=== PATIENT | female | born 1995 | race Caucasian/White ===

== ENCOUNTER 2016-09-29 13:41 | Emergency (ER) | payer BC, MEDICAID ==
[~2016-09-29] VITALS: Ht 165.1 cm; Wt 59.0 kg
[~2016-09-29 13:41] MED LIST: PROT40TA PO; ZOFR4TAB3 SL
[2016-09-29 13:47] VITALS: BP 114/60; PULSE 124; RESP 24; TEMP 98.2; O2SAT 98
--- NOTE | 2016-09-29 14:05 | PD ---
HPI Chief Complaint: Laceration/Skin Injury Time Seen by Provider: 14:05 Travel History International Travel<30 days: No Contact w/Intl Traveler<30days: No Traveled to known affect area: No History of Present Illness HPI 20-year-old female presents to the emergency department for evaluation of lacerations. Patient states that she was in her bedroom and was going to smoke a cigarette so she tried to open one of her windows. States that it is an old window that had been painted shut and she put her hands up onto the frame and pushed using some of her body weight. States that this caused the glass to break and her right wrist was lacerated by a large piece of glass. States that she also cut her left elbow. She complains of pain at the site of the laceration but denies any numbness or tingling, weakness, decreased range of motion, decreased sensation. Unsure of last tetanus vaccination. Denies but is unsure of her last menstrual cycle. States she took a test yesterday that was negative. No other complaints. PFSH Past Medical History Autoimmune Disease: No Cardiovascular Problems: No Diminished Hearing: No Genitourinary: No Hiatal Hernia: No Musculoskeletal: Yes (BROKEN RT ELBOW WHEN SHE WAS 7 ) Neurologic: No Psychiatric: No (DENIES) Respiratory: No Immunizations Current: Yes Ulcer: No Past Surgical History Pacemaker: No Other Surgery: No Social History Alcohol Use: Yes (OCCASSIONAL) Tobacco Use: Yes (OCCASSIONAL) Substance Use: Yes (OCCASIONAL POT) Allergies-Medications (Allergen,Severity, Reaction): Coded Allergies: No Known Allergies (Unverified , 01/28/14) Reported Meds & Prescriptions Reported Meds & Active Scripts Active Protonix (Pantoprazole Sodium) 40 Mg Tab 40 Mg PO DAILY 30 Days Zofran ODT (Ondansetron HCl) 4 Mg Tab 4 Mg SL Q6H PRN FOR NAUSEA/VOMITING Review of Systems Except as stated in HPI: all other systems reviewed are Neg Physical Exam Narrative GENERAL: Well-nourished and well-developed pleasant female patient in no acute distress who is nontoxic appearing. SKIN: Warm and dry. HEAD: Normocephalic and atraumatic. EYES: No injection, drainage, or hyphema noted. PERRLA. EOMI. ENT: No nasal drainage noted. Oropharynx is clear. NECK: Supple and the trachea is midline. CARDIOVASCULAR: Regular rate and rhythm. RESPIRATORY: Breath sounds are equal bilaterally with no accessory muscle use, wheezing, rhonchi, or crackles. GASTROINTESTINAL: Abdomen is soft, non-tender, and nondistended. MUSCULOSKELETAL: 3.5 cm laceration across the volar right wrist. 1 cm laceration over left elbow. No obvious deformities, swelling, cyanosis, or ecchymosis is present throughout the upper and lower extremities. Patient has full range of motion without any signs of neurovascular compromise. Radial pulses are 2+ bilaterally. Capillary refill is within normal limits. Extension Clerk strength 5/5 and equal bilaterally. Full range of motion in right wrist with full strength. 2 point discrimination is intact. NEUROLOGICAL: Awake, alert, and oriented. Normal speech and gait. Cranial nerves are grossly intact. Data Data Last Documented VS Vital Signs Date Time Temp Pulse Resp B/P Pulse Ox O2 Delivery O2 Flow Rate FiO2 09/29/16 13:47 98.2 124 24 114/60 98 Room Air Orders Tetanus/Diphtheria Tox Adult (Tetanus/Di (09/29/16 14:15) Lidocai-Epi 1%-1:100,000 Inj (Xylocaine- (09/29/16 14:15) Wrist, Complete ([id number]) (09/29/16 14:02) Ed Urine Pregnancytest Poc (09/29/16 14:04) Lidocai-Epi 1%-1:100,000 Inj (Xylocaine- (09/29/16 14:30) Lidocai-Epi 1%-1:100,000 Inj (Xylocaine- (09/29/16 15:00) Splint Or Brace Apply/Monitor (09/29/16 16:16) Cephalexin (Keflex) (09/29/16 16:30) MDM Medical Decision Making Medical Screen Exam Complete: Yes Emergency Medical Condition: Yes Differential Diagnosis Laceration versus superficial versus deep versus tendon injury versus vascular injury Narrative Course 20-year-old female presents to the emergency department for evaluation of right wrist and left elbow lacerations secondary to broken window glass. Patient is afebrile, vital signs are stable. On physical examination she does have a fairly deep laceration to the volar right wrist. She has full strength, sensation and capillary refill, no sign of neurovascular injury. X-ray of the right wrist has been ordered to rule out any foreign body retention. X-ray of the right wrist is negative. Tetanus vaccination is updated here in the ED. Laceration repairs performed, see procedure narrative. Once the patient's wrist was anesthetized properly I was able to get a better view of the laceration. She has a full tendon laceration of her believe is the flexor digitorum superficialis. She does have full flexion and extension with full strength. I did call the hand surgeon who recommends closure of the skin laceration and the patient be placed in the splint. Discussed with the patient proper wound care techniques and instructed her not to remove the splint. She is given follow-up information to see Dr. Ibarra in the office. She'll be discharged with antibiotics prophylactically. Patient verbalizes understanding and agreement with treatment plan. Procedures Procedure Narrative LACERATION LOCATION: Left elbow LENGTH: 1 cm NUMBER OF STITCHES/AURELIANO: 2 sutures REPAIR: The area of the laceration was prepped with Betadine and sterilely draped. The laceration was infiltrated with 1% lidocaine with epinephrine. The wound was copiously irrigated and explored without evidence of foreign body , tendon injury or neurovascular injury. The wound was closed using 4. 0 Ethilon. This was a single layer repair. A sterile dressing was applied. The patient was advised to keep the dressing clean and dry. Patient tolerated the procedure well. LACERATION LOCATION: Volar right wrist LENGTH: 5 cm NUMBER OF STITCHES/AURELIANO: 14 sutures REPAIR: The area of the laceration was prepped with Betadine and sterilely draped. The laceration was infiltrated with 1% lidocaine with epinephrine. There is a flexor tendon laceration. The wound was copiously irrigated and explored without evidence of foreign body or neurovascular injury. The wound was closed using 4.0 Ethilon. This was a single layer repair. A sterile dressing and splint was applied. The patient was advised to keep the dressing clean and dry. Patient tolerated the procedure well. Physician Communication Physician Communication I spoke with Dr. Ibarra hand surgeon who recommends closure of the skin with patient placed in a short arm dorsal blocking splint with wrist in slight flexion. He will see her in the office. Diagnosis Primary Impression: Flexor tendon laceration of wrist with open wound Qualified Code: S66.921A - Flexor tendon laceration of wrist with open wound, right, initial encounter Additional Impressions: Wrist laceration Qualified Code: S61.511A - Wrist laceration, right, initial encounter Elbow laceration Qualified Code: S51.012A - Elbow laceration, left, initial encounter Referrals: Teodoro Ibarra III, MD 2 days Patient Instructions: General Instructions, Laceration (ED), Tendon Laceration (ED) Additional Instructions: Do not remove splint. Take medications as prescribed with food and a full glass of water. Call Dr. Ibarra's office tomorrow morning to set up appointment. Return to the ED for any acute worsening of symptoms. Med/Other Pt SpecificInfo: Prescription(s) given Disposition: 01 DISCHARGE HOME Condition: Stable Lakisha Alvarado Sep 29, 2016 14:05
[2016-09-29] MEDS ORDERED: TETANUS/DIPHTHERIA TOXOID ADULT 0.5 ML VIAL IM ONE (14:15)
[2016-09-29] MEDS ORDERED: LIDOCAINE 1%/EPINEPHrine 1:100,000 SOLN 20 ML VIAL INFIL ONE ×2 (14:15→14:30)
--- NOTE | 2016-09-29 14:49 | RADRPT ---
EXAM DATE/TIME: 09/29/2016 14:22 [facility] COMPARISON: No previous studies available for comparison. INDICATIONS : Laceration to anterior wrist. Cut on broken window. MEDICAL HISTORY : None. SURGICAL HISTORY : None. ENCOUNTER: Initial ACUITY: 1 day PAIN SCORE: 9/10 LOCATION: Right anterior wrist FINDINGS: Three view examination of the right wrist demonstrates no soft tissue swelling, dislocation, or fract ure. No radiopaque foreign body identified. The carpal bones are in normal alignment. The joint spa hu are maintained. Bony mineralization is normal. CONCLUSION: No acute fracture, dislocation or radiopaque foreign body. Ben Jang MD on September 29, 2016 at 14:37 Board Certified Radiologist. This report was verified electronically.
[2016-09-29] MEDS ORDERED: LIDOCAINE 1%/EPINEPHrine 1:100,000 SOLN 30 ML VIAL INFIL ONE (15:00)
[2016-09-29] MEDS ORDERED: CEPHALEXIN MONOHYDRATE 500 MG CAP PO ONE (16:30)
[2016-09-29] MEDS ORDERED: NAPR500T PO (16:31)
[2016-09-29] MEDS ORDERED: CEPH-460 PO (16:31)
[2016-09-29 17:21] VITALS: BP 128/78
== END 2016-09-29 17:22 | disposition home or self-care (01) ==
LOC: NEPE 13:41
DX: S66.021A Laceration of long flexor muscle, fascia and tendon of right thumb at wrist and hand level, initial encounter (principal); S51.012A Laceration without foreign body of left elbow, initial encounter; W25.XXXA Contact with sharp glass, initial encounter; Y93.89 Activity, other specified; Y92.003 Bedroom of unspecified non-institutional (private) residence as the place of occurrence of the external cause; Z72.0 Tobacco use
CPT/HCPCS: 12002; 29125; 73110; 90471; 90714

== ENCOUNTER 2016-10-06 14:30 | Emergency (ER) | payer MEDICAID ==
[~2016-10-06] VITALS: Ht 165.1 cm; Wt 59.0 kg
[~2016-10-06 14:30] MED LIST changes: +CEPH-460 PO; +NAPR500T PO
[2016-10-06 14:31] VITALS: BP 132/76; PULSE 78; RESP 14; TEMP 98.2; O2SAT 99
--- NOTE | 2016-10-06 16:28 | PD ---
HPI Chief Complaint: Edema Time Seen by Provider: 16:28 Travel History International Travel<30 days: No Contact w/Intl Traveler<30days: No Traveled to known affect area: No History of Present Illness HPI 20 YO F presents to the ED for evaluation of 2 day history of left labial swelling, pain and dysuria. Denies fevers, chills, abdominal pain, N/V, back pain, vaginal discharge. LMP 6/15. Denies risk of . Denies history of similar complaint. PFSH Past Medical History Autoimmune Disease: No Cardiovascular Problems: No Diminished Hearing: No Genitourinary: No Hiatal Hernia: No Musculoskeletal: Yes (BROKEN RT ELBOW WHEN SHE WAS 7 ) Neurologic: No Psychiatric: No (DENIES) Respiratory: No Immunizations Current: Yes Ulcer: No Tetanus Vaccination: < 5 Years Influenza Vaccination: No ?: Unknown Past Surgical History Pacemaker: No Other Surgery: No Social History Alcohol Use: No Tobacco Use: Yes Substance Use: No Allergies-Medications (Allergen,Severity, Reaction): Coded Allergies: No Known Allergies (Unverified , 10/06/16) Reported Meds & Prescriptions Reported Meds & Active Scripts Active Ibuprofen 600 Mg Tab 600 Mg PO Q8HR Bactrim DS (Sulfamethoxazole-Trimethoprim) 800-160 Mg Tab 1 Tab PO BID Naproxen 500 Mg Tab 500 Mg PO BID 7 Days Keflex (Cephalexin) 500 Mg Capsule 500 Mg PO Q8H 10 Days Protonix (Pantoprazole Sodium) 40 Mg Tab 40 Mg PO DAILY 30 Days Zofran ODT (Ondansetron HCl) 4 Mg Tab 4 Mg SL Q6H PRN FOR NAUSEA/VOMITING Review of Systems Except as stated in HPI: all other systems reviewed are Neg Physical Exam Narrative GENERAL: Well-nourished, well-developed non toxic appearing white female in NAD. SKIN: Focused skin assessment warm/dry. The inner aspect of the labia minor is indurated, erythematous and tender. This is in the area of the Bartholin gland, but no fluctuance or definite abscess is noted. HEAD: Normocephalic. EYES: No scleral icterus. No injection or drainage. NECK: Supple, trachea midline. No JVD or lymphadenopathy. CARDIOVASCULAR: Regular rate and rhythm without murmurs, gallops, or rubs. RESPIRATORY: Breath sounds equal bilaterally. No accessory muscle use. GASTROINTESTINAL: Abdomen soft, non-tender, nondistended. MUSCULOSKELETAL: No cyanosis, or edema. Ambulatory, moves the extremities spontaneously. BACK: Nontender without obvious deformity. No CVA tenderness. Data Data Last Documented VS Vital Signs Date Time Temp Pulse Resp B/P Pulse Ox O2 Delivery O2 Flow Rate FiO2 10/06/16 17:40 75 16 115/71 99 10/06/16 14:31 98.2 Orders Urinalysis - C+S If Indicated (10/06/16 16:36) Ed Urine Pregnancytest Poc (10/06/16 16:36) Sulfamet-Trimeth Ds 800-160 Mg (Bactrim (10/06/16 17:30) Labs Laboratory Tests Test 10/06/16 16:40 Urine Color YELLOW Urine Turbidity HAZY Urine pH 8.0 Urine Specific [place] 1.015 Urine Protein NEG mg/dL Urine Glucose (UA) NEG mg/dL Urine Ketones NEG mg/dL Urine Occult Blood NEG Urine Nitrite NEG Urine Bilirubin NEG Urine Urobilinogen LESS THAN 2.0 MG/DL Urine Leukocyte Esterase NEG Urine RBC LESS THAN 1 /hpf Urine WBC 1 /hpf Urine Squamous Epithelial 2 /hpf Cells Urine Amorphous Sediment RARE Microscopic Urinalysis Comment CULT NOT INDICATED MDM Medical Decision Making Medical Screen Exam Complete: Yes Emergency Medical Condition: Yes Differential Diagnosis bartholinitis versus bartholins cyst versus vulvar abscess versus cellulitis versus other Narrative Course 20 YO F presents to the ED for evaluation of 2 day history of left labial swelling, pain and dysuria. Denies fevers, chills, abdominal pain, N/V, back pain, vaginal discharge. LMP 6/15. Denies risk of . Denies history of similar complaint. Vitals reviewed. On physical exam the inner aspect of the labia minora is indurates, erythematous and tender. This is in the area of the Bartholin gland, but no fluctuance or definite abscess is identified. Test negative. No indication for culture of the UA. I discussed the patient with Dr. Rodriguez. She examined the patient and agrees that I&D is not indicated. We' ll treat with Bactrim and warm compresses. Patient's instructed to take medication as prescribed, return for worsening symptoms. She is agreeable to this conservative care plan. She states that she may be able to follow-up with the poster. The patient is stable and discharged home. Diagnosis Primary Impression: Bartholinitis Referrals: Quality Control Chemist Patient Instructions: Bartholin Cyst (ED), General Instructions Additional Instructions: Rest, hydrate. Take medication as prescribed. Warm compresses or soaks a few times per day. Ibuprofen up to 3 times per day to reduce pain and inflammation. Follow up with the poster. Return to the ED for worsening of symptoms or any urgent or emergent medical condition. Med/Other Pt SpecificInfo: Prescription(s) given Scripts Ibuprofen 600 Mg [id number] Mg PO Q8HR #15 TAB Ref 0 Prov:Hannah Rodriguez MD 10/06/16 Sulfamethoxazole-Trimethoprim (Bactrim DS)800-160 Mg Tab1 Tab PO BID #14 TAB Ref 0 Prov:Hannah Rodriguez MD 10/06/16 Disposition: 01 DISCHARGE HOME Condition: Stable Anni Gil Oct 06, 2016 16:28
[2016-10-06] MEDS ORDERED: BACT800T5 PO (17:18)
[2016-10-06] MEDS ORDERED: IBUP-232 PO (17:19)
[2016-10-06 17:21] LABS: BLOOD, URINE NEG (NEG); COMMENT (UR) CULT NOT INDICATED; CULTURE IF INDICATED CULT NOT INDICATED; GLUCOSE,URINE NEG (NEG); KETONE, URINE NEG (NEG); NITRITE,URINE NEG (NEG); SQUAMOUS EPITHELIAL CELL URINE 2 /hpf (0-5); URINE COLOR YELLOW (YELLW/STRAW)
[2016-10-06] MEDS ORDERED: SULFAMETHOXAZOLE-TRIMETHOPRIM DS 800-160 MG TAB PO ONE (17:30)
[2016-10-06 17:40] VITALS: BP 115/71
== END 2016-10-06 17:42 | disposition home or self-care (01) ==
LOC: NEPD 14:30
DX: N75.8 Other diseases of Bartholin's gland (principal)
CPT/HCPCS: 81001; 84703; 99283